=== PATIENT | female | born 1960 | race Two or more races ===

== ENCOUNTER 2017-06-02 11:20 | Emergency (ER) | payer OTHER ==
[~2017-06-02] VITALS: Ht 154.9 cm; Wt 71.7 kg
[2017-06-02 12:07] LABS: Basophils # (auto) 0 uL; Basophils % (auto) 0.6 % (0.0-2.0); Eosinophils # (auto) 0.1 uL; Eosinophils % (auto) 1.5 % (0.0-7.0); Hematocrit 43.2 % (36.0-46.0); Hemoglobin 14.6 g/dL (12.2-16.2); Lymphocytes # (auto) 2.6 uL; Lymphocytes % (auto) 31.8 % (10.0-50.0); Mean Corpuscular Hemoglobin 30.1 pg (28.0-32.0); Mean Corpuscular Hgb Conc. 33.8 g/dL (32.0-36.0); Mean Corpuscular Volume 89.2 fL (80.0-100.0); Monocytes # (auto) 0.5 uL; Monocytes % (auto) 5.7 % (0.0-12.0); Neutrophils % (auto) 60.4 % (37.0-80.0); Nucleated Red Blood Cells % 0.1 %; Platelet Count (auto) 277 10^3/uL (140-450); Red Blood Cells 4.84 10^6/uL (4.0-5.20); Red Cell Distribution Width 14.3 % (11.8-14.3); White Blood Cell 8.3 10^3/uL (4.4-10.8)
[2017-06-02 12:20] LABS: INR 0.95 (0.9-1.15); Prothrombin Time 10.3 sec (9.37-12.3)
[2017-06-02 12:28] LABS: Albumin 3.4 g/dL (3.4-5.0); Anion Gap 7 (5-15); Blood Urea Nitrogen 9 mg/dL (7-18); Calcium 8.6 mg/dL (8.5-10.1); Carbon Dioxide 27 mmol/L (21-32); Chloride 105 mmol/L (98-107); Glucose 124 mg/dL (74-106); Magnesium 2.2 mg/dL (1.6-2.6); Potassium 3.6 mmol/L (3.5-5.1); Sodium 139 mmol/L (136-145)
[2017-06-02 12:30] LABS: Alanine Aminotransferase 67 U/L (13-56); Aspartate Aminotransferase 47 U/L (15-37); GFR African American 112 mL/min; GFR Non-African American 93 mL/min
[2017-06-02 12:34] LABS: Alkaline Phosphatase 103 U/L (45-117); Bilirubin, Total 0.3 mg/dL (0.2-1.0); Total Protein 7.7 g/dL (6.4-8.2)
[2017-06-02] MEDS ORDERED: ASPirin 81 mg TAB PO ONE (16:45)
[2017-06-02] MEDS ORDERED: HYDROcodone-ACET 10/325MG TAB PO ONE (16:45)
[2017-06-02 18:15] VITALS: BP 136/79
== END 2017-06-02 18:35 | disposition home or self-care (01) ==
LOC: ER 11:20
DX: R07.89 Other chest pain (principal); R79.89 Other specified abnormal findings of blood chemistry; I10 Essential (primary) hypertension
CPT/HCPCS: 36415; 71020; 80053; 83735; 84484; 85025; 85379; 85610; 85730; 93005